=== PATIENT | female | born 1965 | race Caucasian/White ===

== ENCOUNTER 2016-09-02 12:09 | Emergency (ER) | payer MEDICARE, OTHER ==
[~2016-09-02] VITALS: Wt 89.0 kg
[~2016-09-02 12:09] MED LIST: ATEN50TA PO; CEPH-443 PO; INSU100C5 SQ; NOVOLOG; OMEP40CA6 PO; SEVE800T7 PO; TAP5 PO
[2016-09-02] MEDS ORDERED: ACETAMINOPHEN 325 MG TAB PO ONE (13:00)
--- NOTE | 2016-09-02 14:20 | RADRPT ---
PROCEDURE: XR Chest AP portable CLINICAL INDICATION: Cough TECHNIQUE: An AP portable radiograph of the chest was submitted. COMPARISON: 02/12/2013 FINDINGS: Support Hardware: None Cardiovascular: The heart size has slightly increased and is now borderline enlarged while the perip heral pulmonary vasculature is upper normal. Lung Wyatt: The lung wyatt appear clear with no nodule, alveolar infiltrate, or interstitial promi nence evident. Pleural Spaces: No pneumothorax or pleural effusion is identified. Osseous Structures: The osseous structures appear intact. Soft Tissues: The soft tissues appear generous. IMPRESSION: 1. The heart size is increased and is now borderline enlarged while the pulmonary vasculature is up per normal. 2. The lung wyatt and pleural spaces remain unremarkable. Physician Nalini Date Time Electronically viewed and signed by Physician Nalini on 09/02/2016 14:19 /
[2016-09-02] MEDS ORDERED: ACET500C5 PO (14:23)
[2016-09-02] MEDS ORDERED: AZIT250T94 PO (14:23)
[2016-09-02] MEDS ORDERED: OSLT75C PO (14:23)
[2016-09-02] MEDS ORDERED: D-ME473S18 PO (14:24)
--- NOTE | 2016-09-02 14:26 | ERD ---
ER Documentation Chief Complaint Date/Time DATE: 09/02/16 TIME: 14:25 Chief Complaint COUGH, HEADACHE, GENERAL BODY ACHE X 3 DAYS HPI This 50-year-old female presents with productive cough and sore throat body aches and tactile fevers last 3 days. She is a dialysis patient. She has diabetes. She denies vomiting, abdominal pain, headache, neck stiffness, rashes. ROS All systems reviewed and are negative except as per history of present illness. Medications Home Meds Active Scripts Dextromethorphan Hb-Promethazine Hcl (Promethazine DM Syrup) 473 Ml Syrup, 5 ML PO Q6H Y for COUGH, #4 OZ Prov:NORAH HOWE MD 09/02/16 Acetaminophen* (Tylophen*) 500 Mg Capsule, 1 CAP PO Q6H Y for PAIN AND OR ELEVATED TEMP, #15 CAP Prov:NORAH HOWE MD 09/02/16 Azithromycin* (Zithromax*) 250 Mg Tablet, 250 MG PO .ZPACK DIRECTED, #6 TAB TAKE 500 MG (2 TABS) THE FIRST DAY THEN 250 MG (1 TAB) DAYS 2-5 Prov:NORAH HOWE MD 09/02/16 Oseltamivir Phosphate* (Tamiflu*) 75 Mg Capsule, 75 MG PO BID for 5 Days, CAP Prov:NORAH HOWE MD 09/02/16 Cephalexin* (Keflex*) 500 Mg Capsule, 1000 MG PO BID for 7 Days, CAP Prov:ALESIA SOLANO 03/26/16 Reported Medications [Novolog] No Conflict Check 02/12/13 Sevelamer Carbonate* (Renvela*) 800 Mg Tablet, 800 MG PO TID 01/16/13 Methimazole* (Methimazole*) 5 Mg Tablet, 10 MG PO BID 01/16/13 Omeprazole* (Omeprazole*) 40 Mg Capsule.dr, 10 MG PO Y 01/16/13 Insulin Glargine,Hum.rec.anlog (Lantus) 100 U/Ml Cartridge, 30 SQ HS 01/16/13 Atenolol* (Atenolol*) 50 Mg Tablet, 50 MG PO DAILY 12/17/11 Allergies Allergies: Coded Allergies: No Known Allergies (Verified Allergy, Unknown, 08/18/14) PMhx/Soc History of Surgery: Yes (port A catheter placement,2011 and AV fistula 2011) Anesthesia Reaction: No Hx Neurological Disorder: No Hx Respiratory Disorders: No Hx Cardiac Disorders: Yes (htn) Hx Psychiatric Problems: No Hx Miscellaneous Medical Probl: Yes (DM, ESRD, dialysis Tue, Thur, Sat, thyroid problem) Hx Alcohol Use: No Hx Substance Use: No Hx Tobacco Use: No Smoking Status: Never smoker Physical Exam Vitals Vital Signs Date Time Temp Pulse Resp B/P Pulse Ox O2 Delivery O2 Flow Rate FiO2 09/02/16 12:28 98.9 86 18 166/80 99 Physical Exam Const: [] Alert, morbidly obese per Head: Atraumatic Eyes: Normal Conjunctiva ENT: Normal External Ears, Nose and Mouth. TMs and oropharynx normal. Neck: Full range of motion..~ No meningismus. Resp: Clear to auscultation bilaterally. Coarse breath sounds without wheezing, rales or retractions. Cardio: Regular rate and rhythm, no murmurs Abd: Soft, non tender, non distended. Normal bowel sounds Skin: No petechiae or rashes Back: No midline or flank tenderness Ext: No cyanosis, or edema Neur: Awake and alert Psych: Normal Mood and Affect Results 24 hrs Current Medications Medications (Trade) Dose Ordered Sig/Yasmeen Route PRN Reason Start Time Stop Time Status Last Admin Dose Admin Acetaminophen (Tylenol Tab) 650 mg ONCE ONCE PO 09/02/16 13:00 09/02/16 13:01 DC 09/02/16 13:59 Procedures/MDM Chest X-ray 1V Interpreted by me: Soft Tissue: No acute abnormalities Bones: No acute abnormalities Mediastinum/Cardiac Silhouette/Lungs: [No acute abnormalities]. Impression- no acute findings in 1 view chest x-ray Patient was given Tylenol for body aches and fever. Patient has acute URI symptoms suggestive of possible influenza without evidence of respiratory distress or hypoxemia. Given patient's high risk status she will be treated with Tamiflu as well as Zithromax for productive cough. Patient additionally be given promethazine and Tylenol instructions to follow-up with primary doctor return to ER for new or worsening symptoms. The patient was stable with no new complaints during the ER course. Clinically, there is no current evidence to suggest meningitis, sepsis, acute abdomen, pneumonia, acute coronary syndrome, pulmonary embolism, or any other emergent condition appearing to require further evaluation or hospitalization. The patient should certainly return for any new or worsening symptoms per the aftercare instructions. They should otherwise follow-up with her primary care doctor for reevaluation this week. Departure Diagnosis: Primary Impression: Upper respiratory infection URI type: unspecified URI Qualified Code: J06.9 - Upper respiratory tract infection, unspecified type Additional Impression: Influenza-like symptoms Condition: Stable Patient Instructions: Acute Bronchitis, Influenza (Adult) Additional Instructions: X-ray normal. Cheque otro vez con bearden doctor primario en el proximo guevara or regresa para mas o nueva simptomas. NORHA HOWE MD Sep 02, 2016 14:26
[2016-09-02 15:07] VITALS: BP 177/78; PULSE 61; RESP 18; TEMP 99
== END 2016-09-02 15:08 | disposition home or self-care (01) ==
LOC: FTE 12:09
DX: J06.9 Acute upper respiratory infection, unspecified (principal); J02.9 Acute pharyngitis, unspecified; R50.9 Fever, unspecified; E11.9 Type 2 diabetes mellitus without complications; I12.0 Hypertensive chronic kidney disease with stage 5 chronic kidney disease or end stage renal disease; N18.6 End stage renal disease; Z79.4 Long term (current) use of insulin; Z99.2 Dependence on renal dialysis
CPT/HCPCS: 71010

== ENCOUNTER 2016-10-09 09:10 | Observation (INO) | payer MEDICARE ==
[~2016-10-09] VITALS: Ht 162.6 cm; Wt 91.0 kg
[~2016-10-09 09:10] MED LIST changes: +ACET500C5 PO; +AZIT250T94 PO; +D-ME473S18 PO; +METH-493 PO; +OSLT75C PO; -TAP5 PO
[2016-10-09 09:59] LABS: ADD SCAN DIFF NO
[2016-10-09 10:08] LABS: BASOPHILS % 0.2 % (0.0-2.0); EOSINOPHILS # 0.1 10^3/ul (0.0-0.5); EOSINOPHILS % 1.5 % (0.0-7.0); HEMATOCRIT 31.9 % (37.0-47.0); HEMOGLOBIN 10.9 g/dl (12.0-16.0); LYMPHOCYTES # 2.8 10^3/ul (0.8-2.9); LYMPHOCYTES % 47.3 % (15.0-51.0); MEAN CORPUSCULAR HEMOGLOBIN 35.2 pg (29.0-33.0); MEAN CORPUSCULAR HGB CONC 34.2 g/dl (32.0-37.0); MEAN CORPUSCULAR VOLUME 102.9 fl (82.0-101.0); MEAN PLATELET VOLUME 11.7 fl (7.4-10.4); MONOCYTE # 0.5 10^3/ul (0.3-0.9); MONOCYTES % 7.7 % (0.0-11.0); NEUTROPHIL # 2.6 10^3/ul (1.6-7.5); NEUTROPHILS % 43.1 % (39.0-77.0); PLATELET COUNT 147 10^3/UL (140-415); RED CELL DISTRIBUTION WIDTH 12.8 % (11.5-14.5)
[2016-10-09 10:11] LABS: ALBUMIN 4.2 g/dl (3.3-4.9)
[2016-10-09 10:12] LABS: INR 0.97; POTASSIUM 4.6 mmol/L (3.5-5.1); PROTIME 12.9 Sec (12.2-14.2)
[2016-10-09 10:13] LABS: PARTIAL THROMBOPLASTIN TIME 33.5 Sec (25.0-35.0)
[2016-10-09 10:14] LABS: ALBUMIN/GLOBULIN RATIO 1.02; BILIRUBIN,INDIRECT 0.2 mg/dl (0-1.1); BILIRUBIN,TOTAL 0.2 mg/dl (0.2-1.3); CREATININE 7.49 mg/dl (0.44-1.00); TOTAL PROTEIN 8.3 g/dl (6.1-8.1)
[2016-10-09 10:15] LABS: CALCIUM 9.1 mg/dl (8.4-10.2)
[2016-10-09] MEDS ORDERED: LANT3I SC (10:28)
[2016-10-09] MEDS ORDERED: ASPI81TA3 PO (10:34)
[2016-10-09] MEDS ORDERED: NOVO3I SC (10:34)
[2016-10-09] MEDS ORDERED: LEVO150T67 PO (10:35)
[2016-10-09] MEDS ORDERED: CHOL100062 PO (10:35)
--- NOTE | 2016-10-09 10:40 | ERA ---
ER Documentation Chief Complaint Date/Time DATE: 10/09/16 TIME: 918 Chief Complaint send by dialysis center , av fistula ocludded HPI 51-year-old female referred to the emergency department from her dialysis center for evaluation of a AV fistula that was not working. Patient's last dialysis was approximately 2 days ago. She states that since then, the AV fistula in her left upper extremity has gotten larger. She went to dialysis today and they were not able to use the fistula. She reports no other symptoms at this time. ROS All systems reviewed and are negative except as per history of present illness. Medications Home Meds Reported Medications Cholecalciferol* (Vitamin D3*) 1,000 Unit Tablet, 1000 UNIT PO DAILY, TAB 10/09/16 Levothyroxine Sodium* (Levothyroxine Sodium*) 150 Mcg Tablet, 150 MCG PO BEFORE BREAKFAST, #30 TAB 10/09/16 Aspirin* (Aspirin* Chew) 81 Mg Tab.chew, 81 MG PO DAILY, TAB.CHEW 10/09/16 Insulin Aspart* (Novolog Insulin Pen*) 100 Unit/Ml Soln, 12 UNIT SC WITH MEALS, EA 10/09/16 Insulin Glargine* (Lantus*) 100 Unit/Ml Soln, 35 UNIT SC QHS, #1 VIAL 10/09/16 Sevelamer Carbonate* (Renvela*) 800 Mg Tablet, 800 MG PO TID 01/16/13 Atenolol* (Atenolol*) 50 Mg Tablet, 50 MG PO DAILY 12/17/11 Discontinued Reported Medications [Novolog] No Conflict Check 02/12/13 Methimazole* (Methimazole*) 5 Mg Tablet, 10 MG PO BID 01/16/13 Omeprazole* (Omeprazole*) 40 Mg Capsule.dr, 10 MG PO Y 01/16/13 Insulin Glargine,Hum.rec.anlog (Lantus) 100 U/Ml Cartridge, 30 SQ HS 01/16/13 Discontinued Scripts Dextromethorphan Hb-Promethazine Hcl (Promethazine DM Syrup) 473 Ml Syrup, 5 ML PO Q6H Y for COUGH, #4 OZ Prov:NORAH HOWE MD 09/02/16 Acetaminophen* (Tylophen*) 500 Mg Capsule, 1 CAP PO Q6H Y for PAIN AND OR ELEVATED TEMP, #15 CAP Prov:NORAH HOWE MD 09/02/16 Azithromycin* (Zithromax*) 250 Mg Tablet, 250 MG PO .EstherPACK DIRECTED, #6 TAB TAKE 500 MG (2 TABS) THE FIRST DAY THEN 250 MG (1 TAB) DAYS 2-5 Prov:NORAH HOWE MD 09/02/16 Oseltamivir Phosphate* (Tamiflu*) 75 Mg Capsule, 75 MG PO BID for 5 Days, CAP Prov:NORAH HOWE MD 09/02/16 Cephalexin* (Keflex*) 500 Mg Capsule, 1000 MG PO BID for 7 Days, CAP Prov:ALESIA SOLANO 03/26/16 Allergies Allergies: Coded Allergies: No Known Allergies (Verified Allergy, Unknown, 08/18/14) PMhx/Soc History of Surgery: Yes (port A catheter placement,2011 and AV fistula 2011) Anesthesia Reaction: No Hx Neurological Disorder: No Hx Respiratory Disorders: No Hx Cardiac Disorders: Yes (htn) Hx Psychiatric Problems: No Hx Miscellaneous Medical Probl: Yes (DM, ESRD, dialysis Tue, Thur, Sat, thyroid problem) Hx Alcohol Use: No Hx Substance Use: No Hx Tobacco Use: No Smoking Status: Never smoker FmHx Noncontributory for chief complaint Physical Exam Vitals Vital Signs Date Time Temp Pulse Resp B/P Pulse Ox O2 Delivery O2 Flow Rate FiO2 10/09/16 09:12 97.8 64 20 192/87 99 Physical Exam GENERAL: The patient is well developed and appropriate for usual state of health in no apparent distress HEENT: Pupils equal, round, and reactive to light. EOMI. There is no scleral icterus. NECK: C-spine is soft and supple, there is no meningismus. There is no cervical lymphadenopathy. LUNGS: Clear to auscultation bilaterally. There are no rales, wheezes or rhonchi. HEART: Regular rate and rhythm, no murmurs, clicks, rubs or gallops. ABDOMEN: Soft, non-tender, non-distended. There are bowel sounds in all four quadrants. No rebound or guarding. EXTREMITIES: There is no peripheral cyanosis or edema. No focal swelling or erythema. Left upper extremity dialysis graft is noted to be aneurysmal with no significant bruit or thrill in the distal aspect of the fistula. NEURO: The patient moves all four extremities with 5/5 strength. Cranial nerves II - XII are intact. Normal gait. Alert and oriented SKIN: There is no apparent rash or petechiae. HEME/LYMPHATIC: There is no evidence of excessive bruising or lymphedema. PSYCHIATRIC: The patient does not appear anxious or depressed. Result Diagram: 10/09/16 0950 10/09/16 0950 Results 24 hrs Laboratory Tests Test 10/09/16 09:50 White Blood Count 6.010^3/ul Red Blood Count 3.1010^6/ul Hemoglobin 10.9g/dl Hematocrit 31.9% Mean Corpuscular Volume 102.9fl Mean Corpuscular Hemoglobin 35.2pg Mean Corpuscular Hemoglobin Concent 34.2g/dl Red Cell Distribution Width 12.8% Platelet Count 98340^3/UL Mean Platelet Volume 11.7fl Neutrophils % 43.1% Lymphocytes % 47.3% Monocytes % 7.7% Eosinophils % 1.5% Basophils % 0.2% Nucleated Red Blood Cells % 0.0/100WBC Neutrophils # 2.610^3/ul Lymphocytes # 2.810^3/ul Monocytes # 0.510^3/ul Eosinophils # 0.110^3/ul Basophils # 0.010^3/ul Nucleated Red Blood Cells # 0.010^3/ul Prothrombin Time 12.9Sec Prothrombin Time Ratio 1.0 INR International Normalized Ratio 0.97 Activated Partial Thromboplast Time 33.5Sec Sodium Level 140mmol/L Potassium Level 4.6mmol/L Chloride Level 100mmol/L Carbon Dioxide Level 22mmol/L Anion Gap 23 Blood Urea Nitrogen 71mg/dl Creatinine 7.49mg/dl Glucose Level 146mg/dl Calcium Level 9.1mg/dl Total Bilirubin 0.2mg/dl Direct Bilirubin 0.00mg/dl Indirect Bilirubin 0.2mg/dl Aspartate Amino Transf (AST/SGOT) 70IU/L Alanine Aminotransferase (ALT/SGPT) 76IU/L Alkaline Phosphatase 130IU/L Total Protein 8.3g/dl Albumin 4.2g/dl Globulin 4.10g/dl Albumin/Globulin Ratio 1.02 Lipase 582U/L Procedures/MDM Patient was taken to a room, seen and evaluated. Comfort measures were initiated. Diagnostic tests were ordered and reviewed. 3 LEAD RHYTHM STRIP: Normal sinus rhythm without ectopy EK lead EKG reviewed by myself: Normal Sinus Rhythm Normal Higgins and intervals No ST elevation, depression, or T wave inversion Impression: Normal EKG RADIOLOGY: reviewed with the radiologist CONSULTATION: hospitalist was notified for admission after speaking with the patient's mat puncher, Dr. Saldivar. I also spoke with Dr. Suarez vascular surgery consultation REEVALUATION: 51-year-old female presents the emergency department with what appears to be a nonfunctional and likely aneurysmal AV dialysis graft. At this time, patient shows no evidence of significant infection, but will require dialysis initiation and management of catheter access. MEDICAL DECISION MAKING: default value Departure Diagnosis: Primary Impression: Complication of vascular access for dialysis Condition: CHANG Chapa Oct 09, 2016 10:40
[2016-10-09] MEDS ORDERED: ACETAMINOPHEN 325 MG TAB PO PRN (11:00)
[2016-10-09] MEDS ORDERED: HYDROCODONE/APAP (5/325) TAB PO PRN (11:00)
[2016-10-09] MEDS ORDERED: NACL 0.9% 3 ML SYG IV SCH (11:00)
[2016-10-09] MEDS ORDERED: ACETAMINOPHEN 650 MG SUPP PR PRN (11:00)
[2016-10-09] MEDS ORDERED: HEPARIN 1000 UNITS/ML 10 ML INJ IV ONE (11:00)
[2016-10-09] MEDS ORDERED: HEPARIN 1000 UNITS/ML 10 ML INJ IV PRN ×2 (11:00)
[2016-10-09] MEDS ORDERED: DOCUSATE SODIUM 100 MG CAP PO PRN (11:00)
[2016-10-09] MEDS ORDERED: ONDANSETRON 4 MG TAB PO PRN (11:00)
[2016-10-09] MEDS: INSULIN ASPART [NOVOLOG] 3 ML PEN SC SCH ×4 (11:36→21:00)
[2016-10-09] MEDS: ATENOLOL 50 MG TAB PO SCH (13:22)
[2016-10-09 13:32] VITALS: Ht 162.6 cm; Wt 91.0 kg
[2016-10-09] MEDS: SEVELAMER CARBONATE 0.8 GM PKT PO SCH ×2 (14:52→19:08)
[2016-10-09] MEDS: HEPARIN 25000 UNITS/250 ML 250 ML IV SCH ×2 (15:09→21:30)
[2016-10-09] MEDS ORDERED: DEXTROSE 5%-0.45% NACL 1,000 ML IV SCH (17:00)
[2016-10-09] MEDS ORDERED: GLUCOSE GEL 15 GRAM TUBE BUCCAL PRN (17:00)
[2016-10-09] MEDS ORDERED: DEXTROSE 50% 50 ML SYRINGE IV PRN ×2 (17:00)
[2016-10-09] MEDS ORDERED: GLUCOSE GEL 15 GRAM TUBE PO PRN ×2 (17:00)
[2016-10-09] MEDS ORDERED: GLUCAGON 1 MG INJ IM PRN (17:00)
[2016-10-09 20:03] VITALS: BP 181/78; RESP 18
--- NOTE | 2016-10-09 20:51 | CONS ---
DATE OF ADMISSION: 10/09/2016 DATE OF CONSULTATION: REASON FOR CONSULTATION: Clotted left upper extremity arteriovenous fistula. Thank you, Drs. Lind and Milton, for asking me to see this patient. HISTORY OF PRESENT ILLNESS: This is a 51-year-old female currently on dialysis per left upper extre mity AV fistula. The patient reported to dialysis unit, was found to have a clotted fistula which w as not functioning. PAST MEDICAL HISTORY: Hypertension, hyperlipidemia, obesity, end-stage renal disease. PAST SURGICAL HISTORY: Dialysis access. ALLERGIES: NONE. SOCIAL HISTORY: No smoking, drinking or drug use. FAMILY HISTORY: No history of sudden cardiac . REVIEW OF SYSTEMS: Negative. PHYSICAL EXAMINATION: GENERAL: The patient is awake, alert, responds appropriately. VITAL SIGNS: Blood pressure is 181/78, pulse is 57, respirations 18, saturation is 97% on room air. HEENT: Normocephalic, atraumatic. PERRLA. NECK: Supple. No JVD, no carotid bruits. CARDIOVASCULAR: Normal S1, S2. LUNGS: Clear. ABDOMEN: Soft. EXTREMITIES: Warm. Left upper extremity AV fistula has inspected. It's aneurysmal with no thrill or bruit. LABORATORY VALUES: Hemoglobin 10.1, white count 6, platelet count 147. Normal coagulation factors and a potassium of 4.6. IMPRESSION: End-stage renal disease with a clotted left upper extremity arteriovenous fistula. RECOMMENDATIONS: Will proceed with thrombectomy, left upper extremity AV fistula. Risks, benefits, complications, alternative therapies explained to the patient. All questions answered. Dictated By: LISBETH TIDWELL/RASHAAD Conf#: [id number] DID#: [id number]
[2016-10-09 21:00] VITALS: BP 176/80; PULSE 60
[2016-10-09] MEDS ORDERED: INSULIN GLARGINE [LANtus] 3 ML PEN SC SCH (21:00)
[2016-10-09] MEDS ORDERED: hydrALAzine 20 MG INJ IV PRN ×2 (21:30→23:00)
[2016-10-09 22:00] VITALS: BP 144/65; PULSE 77
[2016-10-10] VITALS (17 sets, daily range): BP systolic 110–168; BP diastolic 59–83; PULSE 62–72; RESP 12–19
[2016-10-10] MEDS: INSULIN ASPART [NOVOLOG] 3 ML PEN SC SCH ×9 (01:00→22:12)
--- NOTE | 2016-10-10 04:16 | HP ---
DATE OF ADMISSION: 10/09/2016 CONSULTANTS: 1. Dr. Geovani Harmon 2. Dr. Saldivar CHIEF COMPLAINT: Left upper extremity fistula dysfunction. HISTORY OF PRESENT ILLNESS: This is a pleasant 51-year-old female with past medical history of diab etes mellitus, hypertension, hypothyroidism, end-stage renal disease on hemodialysis, and diabetic n ephropathy who was scheduled for hemodialysis this morning, and it was found that her AV fistula is not functioning. Therefore, she was transferred to [facility] Emergency Room. Vascular bearden jaron has been consulted from ER. The patient was made n.p.o. and was started on gentle IV fluid, h eparin. Also, nephrology was consulted. The patient denies having any fever, chills, weight gain, weight loss, or anorexia. No chest pain, palpitations, edema, or orthopnea. No change in visual ac uity, diplopia, photophobia. No abdominal pain. No nausea, vomiting, diarrhea. No dysuria, hematu liset, urgency, incontinence. No change in the color of stool. No neck pain. No restricted range of motion in upper and lower extremities. According to the patient, this has happened to her left upp er extremity AV fistula in the past when she had to obtain thrombectomy in her AV fistula about 2 ye ars ago. PAST MEDICAL AND SURGICAL HISTORY: As above per HPI. MEDICATIONS: 1. Aspirin. 2. Atenolol. 3. Vitamin D. 4. Lantus. 5. NovoLog before meals. 6. Levothyroxine. 7. Renvela. ALLERGIES: NO KNOWN DRUG ALLERGIES. FAMILY HISTORY: Noncontributory. SOCIAL HISTORY: Negative x3 for smoking, alcohol, illicit drugs. She lives at home with her husban d and her daughter. REVIEW OF SYSTEMS: As above per HPI. Otherwise, a 12 point review of systems has been found to be negative. PHYSICAL EXAMINATION: VITAL SIGNS: Temperature 97.5, pulse 60, respirations 18, blood pressure 176/80, oxygen saturation 97% on room air. GENERAL APPEARANCE: The patient is lying in bed comfortably without any distress. She is awake, al ert, oriented. She is able to answer my questions properly. Body habitus mildly overweight with BM I 34.4. EYES AND ENT: Conjunctivae and lids are normal. Pupils are normal. Extraocular normal. Hearing g rossly normal. Lips, teeth, and gums normal. CHEST: Normal expansion of thorax during inspiration. GASTROINTESTINAL: Abdomen is soft, nontender, not distended. Bowel sounds present. No guarding, n o rebound. GENITOURINARY: Deferred. MUSCULOSKELETAL: Upper extremity: There is swelling at the site of AV fistula in antecubital fossa in her biceps area that is nontender to touch. Right upper extremity within normal limits. Bilate ral lower extremities within normal limits. ABDOMEN: Soft, nontender, not distended. Bowel sounds present. No guarding, no rebound. GENITOURINARY: Deferred. MUSCULOSKELETAL: As above. NEUROLOGIC: Cranial nerves II through XII are grossly intact. PSYCHIATRIC: Normal judgment and insight. Alert and oriented x3. Mood and affect is normal. LABORATORY WORK AND IMAGING: WBC 6.0, hemoglobin 10.9, hematocrit 31.9, platelets 147. MCV 102.9. Sodium 140, potassium 4.6, chloride 100, bicarbonate 22, BUN 71, creatinine 7.49, glucose 146, calc ium 9.1, AST 70, ALT of 76, alkaline phosphatase 130. Total protein 8.3, lipase 582. ASSESSMENT AND PLAN 1. Arteriovenous fistula dysfunction. Vascular surgeon has been consulted. Follow his recommendat ion. The patient has been placed on heparin drip. 2. End-stage renal disease on hemodialysis. Nephrology has been consulted. We will follow his rec ommendation for hemodialysis, status post AV fistula embolectomy. 3. Essential hypertension, well controlled on medical management. 4. Diabetes mellitus. Follow up patient's hemoglobin A1c. The patient has been placed on insulin sliding scale. At this time, the patient is n.p.o. 6. Transaminitis which could be hepatorenal. We will obtain abdominal ultrasound. If indicated, w e will obtain a GI consultation. 7. Hypothyroidism. Continue levothyroxine. 8. We will continue to monitor patient closely. Further recommendations, management, and treatment as per clinical course. Dictated By: SHARIFA BARRIENTOS/RASHAAD Conf#: [id number] DID#: [id number]
[2016-10-10 05:03] LABS: ADD SCAN DIFF NO
[2016-10-10 05:06] LABS: BASOPHILS % 0.2 % (0.0-2.0); EOSINOPHILS # 0.2 10^3/ul (0.0-0.5); EOSINOPHILS % 2.5 % (0.0-7.0); HEMATOCRIT 30.6 % (37.0-47.0); HEMOGLOBIN 10.3 g/dl (12.0-16.0); LYMPHOCYTES # 3.5 10^3/ul (0.8-2.9); LYMPHOCYTES % 59.4 % (15.0-51.0); MEAN CORPUSCULAR HEMOGLOBIN 34.4 pg (29.0-33.0); MEAN CORPUSCULAR HGB CONC 33.7 g/dl (32.0-37.0); MEAN CORPUSCULAR VOLUME 102.3 fl (82.0-101.0); MEAN PLATELET VOLUME 11.3 fl (7.4-10.4); MONOCYTE # 0.4 10^3/ul (0.3-0.9); MONOCYTES % 6.3 % (0.0-11.0); NEUTROPHIL # 1.9 10^3/ul (1.6-7.5); NEUTROPHILS % 31.6 % (39.0-77.0); PLATELET COUNT 133 10^3/UL (140-415); RED BLOOD COUNT 2.99 10^6/ul (4.20-5.40); RED CELL DISTRIBUTION WIDTH 12.8 % (11.5-14.5); WHITE BLOOD COUNT 5.9 10^3/ul (4.8-10.8)
[2016-10-10 05:11] LABS: CREATININE 7.91 mg/dl (0.44-1.00)
[2016-10-10 05:12] LABS: CALCIUM 8.5 mg/dl (8.4-10.2)
[2016-10-10 05:45] LABS: ALBUMIN 3.3 g/dl (3.3-4.9)
[2016-10-10 05:48] LABS: BILIRUBIN,INDIRECT 0.1 mg/dl (0-1.1); BILIRUBIN,TOTAL 0.1 mg/dl (0.2-1.3); TOTAL PROTEIN 6.7 g/dl (6.1-8.1)
[2016-10-10] MEDS: LEVOTHYROXINE 150 MCG TAB PO SCH (07:00)
[2016-10-10] MEDS: SEVELAMER CARBONATE 0.8 GM PKT PO SCH ×3 (07:35→17:30)
[2016-10-10] MEDS: CHOLECALCIFEROL 1,000 UNIT TAB PO SCH (09:00)
[2016-10-10] MEDS: ASPIRIN 81 MG TAB PO SCH (09:00)
[2016-10-10] MEDS: ATENOLOL 50 MG TAB PO SCH (09:00)
--- NOTE | 2016-10-10 09:19 | RADRPT ---
PROCEDURE: US Abdomen (right upper quadrant). CLINICAL INDICATION: Abnormal liver function tests. Chronic renal failure. Patient on dialysis. TECHNIQUE: Multiple real-time longitudinal and transverse images of the right upper quadrant of th e abdomen were acquired utilizing a curved array transducer. Images were reviewed on a high-resoluti on PACS workstation. COMPARISON: Renal ultrasound dated 01/19/2013. FINDINGS: The liver is normal in size and echogenicity. There is no focal hepatic lesion. Color Doppler sonography demonstrates normal antegrade flow in the portal vein. The gallbladder is normal with no stones or wall thickening. There is no pericholecystic fluid ricco ection. The bile ducts are normal with the common bile duct measuring 4.6 mm in diameter. The visualized portions of the pancreas are unremarkable with obscuration of the tail of the pancrea s. No free fluid is present. The right kidney measures 6.2 cm. There is normal echogenicity of the right kidney. There is no p erinephric fluid collection. No hydronephrosis, mass, or calculus is seen. IMPRESSION: 1. Atrophic right kidney. 2. Otherwise normal right upper quadrant abdomen ultrasound. RPTAT: QQ .Soto Lucero MD, Date Time Electronically viewed and signed by .Soto Lucero MD, on 10/10/2016 09:19 .R/
[2016-10-10] MEDS: HEPARIN 25000 UNITS/250 ML 250 ML IV SCH ×2 (09:50→17:06)
[2016-10-10] MEDS ORDERED: HEPARIN 1000 UNITS/ML 10 ML INJ ONE (11:51)
[2016-10-10] MEDS ORDERED: LIDOCAINE 1% (MPF) 30 ML INJ ONE (11:51)
[2016-10-10] MEDS ORDERED: PROPOFOL 20 ML ONE (11:53)
[2016-10-10] MEDS ORDERED: FENTAnyl 50 MCG/ML VIAL ONE (11:53)
[2016-10-10] MEDS ORDERED: METOCLOPRAMIDE 10 MG INJ ONE (11:53)
[2016-10-10] MEDS ORDERED: SUCCINYLCHOLINE CHLORIDE 100 MG/5 ML SYG IV ONE (11:53)
[2016-10-10] MEDS ORDERED: ONDANSETRON 4 MG INJ ONE (11:53)
[2016-10-10] MEDS ORDERED: ROCURONIUM 50 MG INJ ONE (11:53)
[2016-10-10] MEDS ORDERED: CEFAZOLIN 1 GM INJ ONE (12:09)
[2016-10-10] MEDS ORDERED: IOHEXOL 300MG/ML 30 ML BTL IV ONE (12:30)
[2016-10-10] MEDS ORDERED: HEPARIN 1000 UNITS/ML 10 ML INJ IRR ONE (12:30)
[2016-10-10] MEDS ORDERED: ONDANSETRON 4 MG INJ IV PRN (13:00)
[2016-10-10] MEDS ORDERED: hydrALAzine 20 MG INJ IV PRN (13:00)
[2016-10-10] MEDS ORDERED: MEPERIDINE 25 MG INJ IV PRN (13:00)
[2016-10-10] MEDS ORDERED: LABETALOL HCL 20MG INJ IV PRN (13:00)
[2016-10-10] MEDS ORDERED: HYDROmorphONE (0.2 MG/ML) 10ML SYG IV PRN ×3 (13:00)
[2016-10-10] MEDS ORDERED: FENTAnyl 50 MCG/ML VIAL IV PRN ×2 (13:00)
[2016-10-10] MEDS ORDERED: IOHEXOL 300MG/ML 30 ML BTL ONE (13:38)
--- NOTE | 2016-10-10 14:13 | PN ---
Date/Time of Note Date/Time of Note DATE: 10/10/16 TIME: 14:05 Assessment/Plan VTE Prophylaxis VTE Prophylaxis Intervention: heparin Lines/Catheters IV [facility] (from [facility]): Peripheral IV Assessment/Plan Chief Complaint/Hosp Course ASSESSMENT AND PLAN 1. Arteriovenous fistula dysfunction. Vascular surgeon has been consulted. Scheduled for AV fistula embolectomy today, continue heparin drip, follow his recommendation. Continue postsurgical care 2. End-stage renal disease on hemodialysis. Nephrology has been consulted. We will follow his recommendation for hemodialysis, status post AV fistula embolectomy. 3. Essential hypertension, well controlled on medical management. 4. Diabetes mellitus. With hemoglobin A1c of 7.0, the patient has been placed on insulin sliding scale. At this time, the patient is n.p.o. 6. Transaminitis which could be hepatorenal. Follow up abdominal ultrasound. If indicated, we will obtain a GI consultation. 7. Hypothyroidism. Continue levothyroxine. We will continue to monitor patient closely. Further recommendations, management, and treatment as per clinical course. Plan to discharge home tomorrow after hemodialysis Problems: Subjective 24 Hr Interval Summary Free Text/Dictation Plan for surgical intervention today Denies any chest pain or shortness of breath N.p.o. secondary to upcoming procedure Exam/Review of Systems Vital Signs Vitals Vital Signs Date Time Temp Pulse Resp B/P Pulse Ox O2 Delivery O2 Flow Rate FiO2 10/10/16 10:35 150/70 10/10/16 07:56 98.3 67 18 94 Intake and Output 10/09/16 10/09/16 10/10/16 14:59 22:59 06:59 Intake Total 33 ml 1255 ml Balance 33 ml 1255 ml Exam General: The patient is moderately overweight, Not in acute distress. HEENT: Atraumatic, normocephalic. The pupils are equal and round . Neck: Supple with full range of motion. Chest: Normal expansion of the thorax during inspiration Lungs: Clear to auscultation bilaterally Heart: Normal S1-S2, Regular rhythm and rate. Abdomen: Soft , nontender, nondistended , bowel sounds are present. Extremities: Left upper extremity fistula site swollen, no edema no cyanosis Neurologic: Normal mental status,The patient is awake, alert and oriented . Results Result Diagram: 10/10/16 0441 10/10/16 0444 Results 24 hrs Laboratory Tests Test 10/09/16 16:38 10/09/16 17:30 10/09/16 20:05 10/09/16 20:23 Bedside Glucose 63 L 129 65 L Activated Partial Thromboplast Time 121.0 *H Test 10/09/16 20:53 10/09/16 21:34 10/09/16 22:03 10/10/16 00:31 Bedside Glucose 76 101 145 190 Test 10/10/16 04:33 10/10/16 04:41 10/10/16 04:44 10/10/16 04:52 Activated Partial Thromboplast Time 49.9 H Hemoglobin A1c 7.0 H Total Bilirubin 0.1 L Direct Bilirubin 0.00 Indirect Bilirubin 0.1 Aspartate Amino Transf (AST/SGOT) 55 H Alanine Aminotransferase (ALT/SGPT) 74 H Alkaline Phosphatase 97 Total Protein 6.7 # Albumin 3.3 Lipase 402 H White Blood Count 5.9 Red Blood Count 2.99 L Hemoglobin 10.3 L Hematocrit 30.6 L Mean Corpuscular Volume 102.3 H Mean Corpuscular Hemoglobin 34.4 H Mean Corpuscular Hemoglobin Concent 33.7 Red Cell Distribution Width 12.8 Platelet Count 133 L Mean Platelet Volume 11.3 H Neutrophils % 31.6 L Lymphocytes % 59.4 H Monocytes % 6.3 Eosinophils % 2.5 Basophils % 0.2 Nucleated Red Blood Cells % 0.0 Neutrophils # 1.9 Lymphocytes # 3.5 H Monocytes # 0.4 Eosinophils # 0.2 Basophils # 0.0 Nucleated Red Blood Cells # 0.0 Sodium Level 139 Potassium Level 4.0 Chloride Level 102 Carbon Dioxide Level 23 Anion Gap 18 H Blood Urea Nitrogen 79 H Creatinine 7.91 H Glucose Level 142 Calcium Level 8.5 Magnesium Level 2.0 Bedside Glucose 125 Test 10/10/16 08:02 Bedside Glucose 142 Medications Medications Current Medications Ondansetron HCl (Zofran Tab) 4 mg Q6H PRN PO NAUSEA AND/OR VOMITING; Start at 11:00 Acetaminophen (Tylenol Tab) 650 mg Q6H PRN PO PAIN LEVEL 1-3 OR FEVER; Start at 11:00 Acetaminophen (Tylenol Supp) 650 mg Q6H PRN [place] PAIN LEVEL 1-3 OR FEVER; Start 10/09/16 at 11:00 Acetaminophen/ Hydrocodone Bitart ([place] (5/325)) 1 tab Q6H PRN PO MODERATE PAIN LEVEL 4-6; Start 10/09/16 at 11:00 Docusate Sodium (Colace) 100 mg Q12H PRN PO CONSTIPATION; Start 10/09/16 at 11: 00 Aspirin (Aspirin) 81 mg DAILY PO ; Start 10/10/16 at 09:00 Atenolol (Tenormin) 50 mg DAILY PO Last administered on 10/09/16 13:22; Admin Dose 50 MG; Start 10/09/16 at 11:00 Cholecalciferol (Vitamin D) 1,000 unit DAILY PO ; Start 10/10/16 at 09:00 Insulin Aspart NOVOLOG *MILD* ALGORITHM Q4 SC ; Start 10/09/16 at 17:30 Dextrose/Sodium Chloride (D5-1/2ns) 1,000 ml @ 40 mls/hr Q24H IV Last administered on 10/09/16 16:58; Admin Dose 40 MLS/HR; Start 10/09/16 at 17:00 Miscellaneous Information 1 ea NOTE XX ; Start 10/09/16 at 17:00 Glucose (Glutose) 15 gm Q15M PRN PO DECREASED GLUCOSE; Start 10/09/16 at 17:00 Glucose (Glutose) 22.5 gm Q15M PRN PO DECREASED GLUCOSE; Start 10/09/16 at 17: 00 Dextrose (D50w Syringe) 25 ml Q15M PRN IV DECREASED GLUCOSE Last administered on 10/09/16 16:59; Admin Dose 25 ML; Start 10/09/16 at 17:00 Dextrose (D50w Syringe) 50 ml Q15M PRN IV DECREASED GLUCOSE; Start 10/09/16 at 17:00 Glucagon (Glucagen) 1 mg Q15M PRN IM DECREASED GLUCOSE; Start 10/09/16 at 17:00 Glucose (Glutose) 15 gm Q15M PRN BUCCAL DECREASED GLUCOSE; Start 10/09/16 at 17 :00 Hydralazine HCl (Apresoline) 10 mg Q4H PRN IV ELEVATED BLOOD PRESSURE Last administered on 10/09/16 21:16; Admin Dose 10 MG; Start 10/09/16 at 21:30 Hydralazine HCl (Apresoline) 10 mg Q6H PRN IV ELEVATED SYSTOLIC BP; Start 10/09 at 23:00 Insulin Glargine (Lantus) 20 unit QHS SC ; Start 10/10/16 at 21:00 SHARIFA BELLA MD Oct 10, 2016 14:13
--- NOTE | 2016-10-10 15:57 | RADRPT ---
PROCEDURE: Intraoperative imaging of the left upper extremity with fluoroscopy. CLINICAL INDICATION: Left arm pain. Nonfunctioning left upper extremity dialysis fistula. Intrao perative. TECHNIQUE: 6 images of the left upper extremity were obtained in the operating room with an image intensifier. No radiologist was in attendance. 35 seconds of fluoroscopy time was used. COMPARISON: No prior study is available for comparison. FINDINGS: Images demonstrate contrast in the dialysis fistula in the left upper extremity. There is a large fi lling defect in the lower portion of the outflow vein which may be thrombus. IMPRESSION: 1. Intraoperative imaging of the left upper extremity. RPTAT: QQ .Soto Lucero MD, MD Date Time Electronically viewed and signed by .Soto Lucero MD, on 10/10/2016 15:56 .R/
--- NOTE | 2016-10-10 20:28 | OPR ---
Date/Time of Note Date/Time of Note DATE: 10/10/16 TIME: 20:27 Operative Report Preoperative Diagnosis Clotted LUE AVF Postoperative Diagnosis same Operation Performed Thrombectomy LUE AVF Surgeon: LISBETH HUDSON MD Anesthesia: general Estimated Blood Loss: 50 - 100 ml's Complications: None Pt Condition Post Procedure: stable Disposition: PACU LISBETH HUDSON MD Oct 10, 2016 20:28
--- NOTE | 2016-10-10 20:57 | CONS ---
DATE OF ADMISSION: 10/09/2016 DATE OF CONSULTATION: Dear Dr. Bella: Thank you for asking me to participate in the care of this 51-year-old para 2, 2 Latin female who is a limited historian, speaks Slovak only. The patient has been known to me for almost 5 years with a diagnosis of diabetes , end-stage kidney disease for which she has been on hemodialysis. The patient has been reasonably stable, in fact has been hardly hospitalized during this course and presented to the emergency room with clotted AV fistula, left arm. The patient at the time of this dictation has undergone AV fistula declotting and is getting dialysis. The patient has not had any problem like this prior to this and she has had reasonable course of dialysis. She is denying any pains in the arm, although she has had swelling of the arm with aneurysmal formation of the fistula. The rest of the past history has been negative except for 2 pregnancies. PERSONAL HISTORY: The patient lives with the family. FAMILY HISTORY: Noncontributory. The patient has had 9 siblings. The other 8 siblings were in good shape. The mother, father is still alive. Mother of heart problem. REVIEW OF SYSTEMS: The rest of the systems are negative for any head, eye, ear , nose, throat problem. No chest pain, shortness of breath, abdominal pain, neck pain, flank pain, dysuria, frequency, urgency, hesitancy. PHYSICAL EXAMINATION: GENERAL: The patient to be mildly obese, pleasant female who is in no acute distress. VITAL SIGNS: Blood pressure has been normal 130/70, heart rate 70, temperature 97, respiration is not labored at 18. HEAD, EYE, EAR, NOSE, THROAT: Unremarkable. Conjunctivae is pale. Sclerae are anicteric. Nose: Normal mucosa. Throat: Tongue is pale. No pharyngeal congestion. NECK: Supple. No JVD, LN, Throid enlargement is present. Neck movements normal. CHEST: Symmetrical. Breasts not examined LUNGS: Clear. HEART: Regular rhythm, S1, S2 unremarkable. ABDOMEN: Flat, soft, no masses. GENITALIA: Not examined. EXTREMITIES: Left arm AV fistula is clotted with marked letty formation of the clot. SKIN: Unremarkable. NEUROLOGIC: No neurological deficits noted. MEDICATIONS AT THIS TIME: Include: 1. Hydralazine. 2. IV fluids which was discontinued. 3. Insulin coverage. 4. Labetalol. 5. Demerol which has been discontinued. 6. Renvela. IMPRESSION: 1. History of diabetes. 2. End-stage kidney disease on hemodialysis. 3. Clotted AV fistula, left arm. PLAN: This patient has been reasonably stable until now. I have discussed the case with the vascular surgeon who has declotted the patient successfully. Hematocrit is stable at 31% and white count is normal. The patient has had a potassium is stable and a hemoglobin A1c is also 7. A KUB was done which showed atrophic right kidney. The patient may have had renovascular disease as suggested by the renal ultrasound findings. Presently the patient has been dialyzed and I would like to get a chest x-ray to evaluate the picture prior to discharging. If stable she can be discharged and return for dialysis. Dictated By: SHAKILA PATE/NTS Conf#: [id number] DID#: [id number] CC: SHAKILA SWANSON MD; SHARIFA BELLA MD;*EndCC* MTDD
--- NOTE | 2016-10-10 21:25 | OPR ---
DATE OF OPERATION: PREOPERATIVE DIAGNOSIS: Clotted left upper extremity arteriovenous fistula. POSTOPERATIVE DIAGNOSIS: Clotted left upper extremity arteriovenous fistula. OPERATION PERFORMED: 1. Thrombectomy and revision left upper extremity fistula. 2. 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 3. Angioplasty left axillary vein 8 x 40 mm balloon. 4. Superior venacavogram. 5. Interpretation and supervision of the superior venacavogram. 6. Catheter introduction into superior vena cava. 7. Fluoroscopy. SURGEON: Lisbeth Harmon MD ANESTHESIA: Local plus IV sedation. CONSENT: Risks, benefits, complications, alternative therapies explained to the patient and the [facility] lakisha, consent obtained. OPERATIVE TECHNIQUE: The patient was placed in supine position, prepped and draped in usual sterile fashion. I made a 2 cm incision over the fistula which was in the left arm. The fistula was ident ified. The Vesseloops were passed around it. It appeared to be aneurysmal. It was then opened in horizontal fashion. Thrombectomy of the arterial and the venous limb of the fistula was performed u sing a 4-[place] catheter. We could not advance the catheter through the arterial anastomosi s. A second incision was made at the arterial anastomosis. Again, the thrombectomy was done in a s imilar fashion. Thrombectomy was completed. Aneurysm was resected. 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 The patient was given 5000 units of IV heparin over an 0.035 guidewire. This was angioplastied up to 2 atmospheres of pressure. The final venogram revealed less than 50% stenosis in this area. The fistula was the n revised in an end-to-end fashion using 6-0 Prolene in continuous fashion. Both wounds were then i rrigated and closed in 2 layers of 3-0 Vicryl suture for subQ and 3-0 Vicryl suture for running subc uticular skin closure. The patient tolerated the procedure well. Dictated By: LISBETH HARMON MD FM/NTS Conf#: [id number] DID#: [id number] CC: LISBETH HARMON MD; SHAKILA SWANSON MD; SHARIFA BELLA MD;*End*
--- NOTE | 2016-10-10 21:57 | RADRPT ---
PROCEDURE: XR Chest. CLINICAL INDICATION: Shortness of breath. TECHNIQUE: Single frontal view. COMPARISON: 09/02/2016. FINDINGS: The lungs are clear. The heart is mildly enlarged. There is no pleural effusion. There is no pneumothorax. IMPRESSION: 1. Mild cardiomegaly. 2. Clear lungs. RPTAT: QQ .Soto Lucero MD, MD Date Time Electronically viewed and signed by .Soto Lucero MD, MD on 10/10/2016 21:56 .R/
[2016-10-10] MEDS: INSULIN GLARGINE [LANtus] 3 ML PEN SC SCH (22:11)
[2016-10-11] VITALS (10 sets, daily range): BP systolic 102–145; BP diastolic 51–72; PULSE 60–72; RESP 16–20
[2016-10-11] MEDS: GABAPENTIN 300 MG CAP PO SCH ×4 (00:13→21:22)
[2016-10-11] MEDS: INSULIN ASPART [NOVOLOG] 3 ML PEN SC SCH ×9 (00:29→21:25)
[2016-10-11] MEDS: LEVOTHYROXINE 150 MCG TAB PO SCH ×2 (04:49→08:32)
[2016-10-11] MEDS: HEPARIN 25000 UNITS/250 ML 250 ML IV SCH ×3 (04:49→13:00)
[2016-10-11] MEDS: HYDROCODONE/APAP (10/325) TAB PO PRN ×3 (04:50→18:17)
[2016-10-11 05:45] LABS: ADD SCAN DIFF NO
[2016-10-11 05:54] LABS: BASOPHILS % 0.2 % (0.0-2.0); EOSINOPHILS % 0.2 % (0.0-7.0); HEMATOCRIT 29.3 % (37.0-47.0); HEMOGLOBIN 9.7 g/dl (12.0-16.0); LYMPHOCYTES # 2.6 10^3/ul (0.8-2.9); LYMPHOCYTES % 44.7 % (15.0-51.0); MEAN CORPUSCULAR HEMOGLOBIN 33.6 pg (29.0-33.0); MEAN CORPUSCULAR HGB CONC 33.1 g/dl (32.0-37.0); MEAN CORPUSCULAR VOLUME 101.4 fl (82.0-101.0); MEAN PLATELET VOLUME 11.9 fl (7.4-10.4); MONOCYTE # 0.4 10^3/ul (0.3-0.9); MONOCYTES % 6.7 % (0.0-11.0); NEUTROPHIL # 2.8 10^3/ul (1.6-7.5); PLATELET COUNT 130 10^3/UL (140-415); RED BLOOD COUNT 2.89 10^6/ul (4.20-5.40); RED CELL DISTRIBUTION WIDTH 12.7 % (11.5-14.5); WHITE BLOOD COUNT 5.9 10^3/ul (4.8-10.8)
[2016-10-11 06:09] LABS: POTASSIUM 4.1 mmol/L (3.5-5.1)
[2016-10-11 06:12] LABS: CALCIUM 8.5 mg/dl (8.4-10.2); CREATININE 6.2 mg/dl (0.44-1.00)
[2016-10-11 06:19] LABS: ALBUMIN 3.5 g/dl (3.3-4.9)
[2016-10-11] MEDS: ASPIRIN 81 MG TAB PO SCH (08:32)
[2016-10-11] MEDS: CHOLECALCIFEROL 1,000 UNIT TAB PO SCH (08:32)
[2016-10-11] MEDS: SEVELAMER CARBONATE 0.8 GM PKT PO SCH ×3 (08:32→18:17)
[2016-10-11] MEDS: ATENOLOL 50 MG TAB PO SCH (08:33)
--- NOTE | 2016-10-11 10:11 | PN ---
Date/Time of Note Date/Time of Note DATE: 10/11/16 TIME: 10:09 Assessment/Plan VTE Prophylaxis VTE Prophylaxis Intervention: other Assessment/Plan Assessment/Plan 1. History of diabetes. 2. End-stage kidney disease on hemodialysis. 3. Clotted AV fistula, left arm. [id number] post declotting hd done yesterday need today as it is her day so she canresume tts Subjective 24 Hr Interval Summary Constitutional: no complaints Eyes: no complaints ENT: no complaints Respiratory: no complaints Cardiovascular: no complaints Exam/Review of Systems Vital Signs Vitals Vital Signs Date Time Temp Pulse Resp B/P Pulse Ox O2 Delivery O2 Flow Rate FiO2 10/11/16 08:00 98.0 68 20 145/63 97 10/11/16 00:15 Room Air Intake and Output 10/10/16 10/10/16 10/11/16 15:00 23:00 07:00 Intake Total 800 ml 620 ml 754 ml Output Total 200 ml 2400 ml Balance 600 ml -1780 ml 754 ml Exam Constitutional: alert Psych: no complaints Head: normocephalic Eyes: nl conjunctiva Neck: supple Respiratory: clear to auscultation Cardiovascular: regular rate and rhythm Gastrointestinal: soft Musculoskeletal: nl extremities to inspection Results Result Diagram: 10/11/16 0430 10/11/16 0430 Results 24 hrs Laboratory Tests Test 10/10/16 16:05 10/10/16 16:37 10/10/16 22:05 10/10/16 22:49 Activated Partial Thromboplast Time 102.6 *H 79.2 *H Bedside Glucose 124 266 H Test 10/11/16 00:19 10/11/16 04:30 10/11/16 04:51 10/11/16 07:47 Bedside Glucose 238 H 172 130 White Blood Count 5.9 Red Blood Count 2.89 L Hemoglobin 9.7 L Hematocrit 29.3 L Mean Corpuscular Volume 101.4 H Mean Corpuscular Hemoglobin 33.6 H Mean Corpuscular Hemoglobin Concent 33.1 Red Cell Distribution Width 12.7 Platelet Count 130 L Mean Platelet Volume 11.9 H Neutrophils % 48.0 Lymphocytes % 44.7 Monocytes % 6.7 Eosinophils % 0.2 Basophils % 0.2 Nucleated Red Blood Cells % 0.0 Neutrophils # 2.8 Lymphocytes # 2.6 Monocytes # 0.4 Eosinophils # 0.0 Basophils # 0.0 Nucleated Red Blood Cells # 0.0 Activated Partial Thromboplast Time 33.7 Sodium Level 136 Potassium Level 4.1 Chloride Level 95 L Carbon Dioxide Level 26 Anion Gap 19 H Blood Urea Nitrogen 54 H Creatinine 6.20 H Glucose Level 186 Calcium Level 8.5 Total Bilirubin 0.0 L Direct Bilirubin 0.00 Indirect Bilirubin 0.0 Aspartate Amino Transf (AST/SGOT) 49 H Alanine Aminotransferase (ALT/SGPT) 61 Alkaline Phosphatase 83 Total Protein 7.0 Albumin 3.5 Lipase 307 H Test 10/11/16 09:33 Bedside Glucose 138 Medications Medications Current Medications Ondansetron HCl (Zofran Tab) 4 mg Q6H PRN PO NAUSEA AND/OR VOMITING Last administered on 10/11/16 09:46; Admin Dose 4 MG; Start 10/09/16 at 11:00 Acetaminophen (Tylenol Tab) 650 mg Q6H PRN PO PAIN LEVEL 1-3 OR FEVER; Start at 11:00 Acetaminophen (Tylenol Supp) 650 mg Q6H PRN [place] PAIN LEVEL 1-3 OR FEVER; Start 10/09/16 at 11:00 Acetaminophen/ Hydrocodone Bitart ([place] (5/325)) 1 tab Q6H PRN PO MODERATE PAIN LEVEL 4-6 Last administered on 10/10/16 22:49; Admin Dose 1 TAB; Start at 11:00 Docusate Sodium (Colace) 100 mg Q12H PRN PO CONSTIPATION; Start 10/09/16 at 11: 00 Aspirin (Aspirin) 81 mg DAILY PO Last administered on 10/11/16 08:32; Admin Dose 81 MG; Start 10/10/16 at 09:00 Atenolol (Tenormin) 50 mg DAILY PO Last administered on 10/11/16 08:33; Admin Dose 50 MG; Start 10/09/16 at 11:00 Cholecalciferol (Vitamin D) 1,000 unit DAILY PO Last administered on 10/11/16 08:32; Admin Dose 1,000 UNIT; Start 10/10/16 at 09:00 Insulin Aspart (Novolog Insulin Pen) NOVOLOG *MILD* ALGORITHM Q4 SC Last administered on 10/11/16 00:29; Admin Dose 2 UNIT; Start 4/13/17 at 17:30 Miscellaneous Information 1 ea NOTE XX ; Start 10/09/16 at 17:00 Glucose (Glutose) 15 gm Q15M PRN PO DECREASED GLUCOSE; Start 10/09/16 at 17:00 Glucose (Glutose) 22.5 gm Q15M PRN PO DECREASED GLUCOSE; Start 10/09/16 at 17: 00 Dextrose (D50w Syringe) 25 ml Q15M PRN IV DECREASED GLUCOSE Last administered on 10/09/16 16:59; Admin Dose 25 ML; Start 10/09/16 at 17:00 Dextrose (D50w Syringe) 50 ml Q15M PRN IV DECREASED GLUCOSE; Start 10/09/16 at 17:00 Glucagon (Glucagen) 1 mg Q15M PRN IM DECREASED GLUCOSE; Start 10/09/16 at 17:00 Glucose (Glutose) 15 gm Q15M PRN BUCCAL DECREASED GLUCOSE; Start 10/09/16 at 17 :00 Hydralazine HCl (Apresoline) 10 mg Q4H PRN IV ELEVATED BLOOD PRESSURE Last administered on 10/09/16 21:16; Admin Dose 10 MG; Start 10/09/16 at 21:30 Hydralazine HCl (Apresoline) 10 mg Q6H PRN IV ELEVATED SYSTOLIC BP; Start 10/09 at 23:00 Insulin Glargine (Lantus) 20 unit QHS SC Last administered on 10/10/16 22:11; Admin Dose 20 UNIT; Start 10/10/16 at 21:00 Acetaminophen/ Hydrocodone Bitart ([place] (10/325)) 1 tab Q6H PRN PO PAIN Last administered on 10/11/16 09:46; Admin Dose 1 TAB; Start 10/11/16 at 00:00 Gabapentin (Neurontin) 600 mg TID PO Last administered on 10/11/16 08:32; Admin Dose 600 MG; Start 10/11/16 at 00:00 JESSIKA PADILLA MD Oct 11, 2016 10:11
--- NOTE | 2016-10-11 15:34 | PN ---
Date/Time of Note Date/Time of Note DATE: 10/11/16 TIME: 15:31 Assessment/Plan VTE Prophylaxis VTE Prophylaxis Intervention: heparin Lines/Catheters IV Catheter Type (from Nrs): Peripheral IV Assessment/Plan Chief Complaint/Hosp Course S-no pain fever dyspnea. Cough w/o expectoration. Feels weak. O- vss PE No pallor/JVD Regular Clear Benign No edema. lt ue-positive warmth/pulses A/P 1. Lt AVF malfunction/thrombus. Stable, sp thrombectomy. DC heparin drip ok w vascular. 2. ESRD; home tomorr/Thursday if ok w consultants. 3. Hypertension/diabetes/metabolic syndrome 4. Abn LFT's probable Yi. Hepatitis panel negative 5. Anemia likely chronic disease 6. Hypothyroidism Problems: Exam/Review of Systems Vital Signs Vitals Vital Signs Date Time Temp Pulse Resp B/P Pulse Ox O2 Delivery O2 Flow Rate FiO2 10/11/16 08:00 98.0 68 20 145/63 97 10/11/16 00:15 Room Air Intake and Output 10/10/16 10/10/16 10/11/16 15:00 23:00 07:00 Intake Total 800 ml 620 ml 754 ml Output Total 200 ml 2400 ml Balance 600 ml -1780 ml 754 ml Results Result Diagram: 10/11/16 0430 10/11/16 0430 Results 24 hrs Laboratory Tests Test 10/10/16 16:05 10/10/16 16:37 10/10/16 22:05 10/10/16 22:49 Activated Partial Thromboplast Time 102.6 *H 79.2 *H Bedside Glucose 124 266 H Test 10/11/16 00:19 10/11/16 04:30 10/11/16 04:51 10/11/16 07:47 Bedside Glucose 238 H 172 130 White Blood Count 5.9 Red Blood Count 2.89 L Hemoglobin 9.7 L Hematocrit 29.3 L Mean Corpuscular Volume 101.4 H Mean Corpuscular Hemoglobin 33.6 H Mean Corpuscular Hemoglobin Concent 33.1 Red Cell Distribution Width 12.7 Platelet Count 130 L Mean Platelet Volume 11.9 H Neutrophils % 48.0 Lymphocytes % 44.7 Monocytes % 6.7 Eosinophils % 0.2 Basophils % 0.2 Nucleated Red Blood Cells % 0.0 Neutrophils # 2.8 Lymphocytes # 2.6 Monocytes # 0.4 Eosinophils # 0.0 Basophils # 0.0 Nucleated Red Blood Cells # 0.0 Activated Partial Thromboplast Time 33.7 Sodium Level 136 Potassium Level 4.1 Chloride Level 95 L Carbon Dioxide Level 26 Anion Gap 19 H Blood Urea Nitrogen 54 H Creatinine 6.20 H Glucose Level 186 Calcium Level 8.5 Total Bilirubin 0.0 L Direct Bilirubin 0.00 Indirect Bilirubin 0.0 Aspartate Amino Transf (AST/SGOT) 49 H Alanine Aminotransferase (ALT/SGPT) 61 Alkaline Phosphatase 83 Total Protein 7.0 Albumin 3.5 Lipase 307 H Test 10/11/16 09:33 10/11/16 11:00 10/11/16 11:45 Bedside Glucose 138 174 Activated Partial Thromboplast Time 50.8 H Medications Medications Current Medications Ondansetron HCl (Zofran Tab) 4 mg Q6H PRN PO NAUSEA AND/OR VOMITING Last administered on 10/11/16 09:46; Admin Dose 4 MG; Start 10/09/16 at 11:00 Acetaminophen (Tylenol Tab) 650 mg Q6H PRN PO PAIN LEVEL 1-3 OR FEVER; Start at 11:00 Acetaminophen (Tylenol Supp) 650 mg Q6H PRN [place] PAIN LEVEL 1-3 OR FEVER; Start 10/09/16 at 11:00 Acetaminophen/ Hydrocodone Bitart ([place] (5/325)) 1 tab Q6H PRN PO MODERATE PAIN LEVEL 4-6 Last administered on 10/10/16 22:49; Admin Dose 1 TAB; Start at 11:00 Docusate Sodium (Colace) 100 mg Q12H PRN PO CONSTIPATION; Start 10/09/16 at 11: 00 Aspirin (Aspirin) 81 mg DAILY PO Last administered on 10/11/16 08:32; Admin Dose 81 MG; Start 10/10/16 at 09:00 Atenolol (Tenormin) 50 mg DAILY PO Last administered on 10/11/16 08:33; Admin Dose 50 MG; Start 10/09/16 at 11:00 Cholecalciferol (Vitamin D) 1,000 unit DAILY PO Last administered on 10/11/16 08:32; Admin Dose 1,000 UNIT; Start 10/10/16 at 09:00 Insulin Aspart (Novolog Insulin Pen) NOVOLOG *MILD* ALGORITHM Q4 SC Last administered on 10/11/16 12:14; Admin Dose 1 UNIT; Start 10/09/16 at 17:30 Miscellaneous Information 1 ea NOTE XX ; Start 10/09/16 at 17:00 Glucose (Glutose) 15 gm Q15M PRN PO DECREASED GLUCOSE; Start 10/09/16 at 17:00 Glucose (Glutose) 22.5 gm Q15M PRN PO DECREASED GLUCOSE; Start 10/09/16 at 17: 00 Dextrose (D50w Syringe) 25 ml Q15M PRN IV DECREASED GLUCOSE Last administered on 10/09/16 16:59; Admin Dose 25 ML; Start 10/09/16 at 17:00 Dextrose (D50w Syringe) 50 ml Q15M PRN IV DECREASED GLUCOSE; Start 10/09/16 at 17:00 Glucagon (Glucagen) 1 mg Q15M PRN IM DECREASED GLUCOSE; Start 10/09/16 at 17:00 Glucose (Glutose) 15 gm Q15M PRN BUCCAL DECREASED GLUCOSE; Start 10/09/16 at 17 :00 Hydralazine HCl (Apresoline) 10 mg Q4H PRN IV ELEVATED BLOOD PRESSURE Last administered on 10/09/16 21:16; Admin Dose 10 MG; Start 10/09/16 at 21:30 Hydralazine HCl (Apresoline) 10 mg Q6H PRN IV ELEVATED SYSTOLIC BP; Start 10/09 at 23:00 Insulin Glargine (Lantus) 20 unit QHS SC Last administered on 10/10/16 22:11; Admin Dose 20 UNIT; Start 10/10/16 at 21:00 Acetaminophen/ Hydrocodone Bitart ([place] (10/325)) 1 tab Q6H PRN PO PAIN Last administered on 10/11/16 09:46; Admin Dose 1 TAB; Start 10/11/16 at 00:00 Gabapentin (Neurontin) 600 mg TID PO Last administered on 10/11/16 13:14; Admin Dose 600 MG; Start 10/11/16 at 00:00 DEENA URBINA MD Oct 11, 2016 15:34
[2016-10-11] MEDS: INSULIN GLARGINE [LANtus] 3 ML PEN SC SCH (21:24)
[2016-10-12] MEDS ORDERED: ONDANSETRON 4 MG INJ IV PRN
[2016-10-12] MEDS ORDERED: CALCIUM CARBONATE 500 MG CHEW TAB PO PRN ×2 (00:30)
[2016-10-12] MEDS: INSULIN ASPART [NOVOLOG] 3 ML PEN SC SCH ×6 (01:00→11:48)
[2016-10-12 08:00] VITALS: BP 118/62; RESP 20
[2016-10-12] MEDS: ASPIRIN 81 MG TAB PO SCH (08:41)
[2016-10-12] MEDS: CHOLECALCIFEROL 1,000 UNIT TAB PO SCH (08:41)
[2016-10-12] MEDS: ATENOLOL 50 MG TAB PO SCH (08:41)
[2016-10-12] MEDS: GABAPENTIN 300 MG CAP PO SCH ×2 (08:42→12:56)
[2016-10-12] MEDS: SEVELAMER CARBONATE 0.8 GM PKT PO SCH ×2 (08:42→12:56)
[2016-10-12] MEDS: LEVOTHYROXINE 150 MCG TAB PO SCH (08:44)
[2016-10-12] MEDS ORDERED: FAMOTIDINE 20 MG TAB PO SCH ×2 (09:00)
--- NOTE | 2016-10-12 10:30 | PN ---
Date/Time of Note Date/Time of Note DATE: 10/12/16 TIME: 10:28 Assessment/Plan VTE Prophylaxis VTE Prophylaxis Intervention: other Assessment/Plan Assessment/Plan [id number] hd yesterday done ok to dc Subjective 24 Hr Interval Summary Constitutional: no complaints Eyes: no complaints Respiratory: no complaints Cardiovascular: no complaints Exam/Review of Systems Vital Signs Vitals Vital Signs Date Time Temp Pulse Resp B/P Pulse Ox O2 Delivery O2 Flow Rate FiO2 10/12/16 08:00 98.9 63 20 118/62 95 10/11/16 20:30 Room Air Intake and Output 10/11/16 10/11/16 10/12/16 15:00 23:00 07:00 Intake Total 120 ml 1952 ml 250 ml Output Total 5000 ml Balance 120 ml -3048 ml 250 ml Exam Constitutional: alert, oriented Head: normocephalic Eyes: nl conjunctiva Neck: supple Respiratory: clear to auscultation Cardiovascular: regular rate and rhythm Gastrointestinal: soft Extremities: normal pulses Results Result Diagram: 10/11/16 0430 10/11/16 0430 Results 24 hrs Laboratory Tests Test 10/11/16 11:00 10/11/16 11:45 10/11/16 17:05 10/11/16 21:17 Activated Partial Thromboplast Time 50.8 H Bedside Glucose 174 173 234 H Test 10/12/16 01:20 10/12/16 04:54 10/12/16 07:41 Bedside Glucose 147 155 130 Medications Medications Current Medications Ondansetron HCl (Zofran Tab) 4 mg Q6H PRN PO NAUSEA AND/OR VOMITING Last administered on 10/11/16 09:46; Admin Dose 4 MG; Start 10/09/16 at 11:00 Acetaminophen (Tylenol Tab) 650 mg Q6H PRN PO PAIN LEVEL 1-3 OR FEVER; Start at 11:00 Acetaminophen (Tylenol Supp) 650 mg Q6H PRN IA PAIN LEVEL 1-3 OR FEVER; Start 10/09/16 at 11:00 Acetaminophen/ Hydrocodone Bitart ([place] (5/325)) 1 tab Q6H PRN PO MODERATE PAIN LEVEL 4-6 Last administered on 10/10/16 22:49; Admin Dose 1 TAB; Start at 11:00 Docusate Sodium (Colace) 100 mg Q12H PRN PO CONSTIPATION; Start 10/09/16 at 11: 00 Aspirin (Aspirin) 81 mg DAILY PO Last administered on 10/12/16 08:41; Admin Dose 81 MG; Start 10/10/16 at 09:00 Atenolol (Tenormin) 50 mg DAILY PO Last administered on 10/12/16 08:41; Admin Dose 50 MG; Start 10/09/16 at 11:00 Cholecalciferol (Vitamin D) 1,000 unit DAILY PO Last administered on 10/12/16 08:41; Admin Dose 1,000 UNIT; Start 10/10/16 at 09:00 Insulin Aspart (Novolog Insulin Pen) NOVOLOG *MILD* ALGORITHM Q4 SC Last administered on 10/11/16 21:25; Admin Dose 2 UNIT; Start 10/09/16 at 17:30 Miscellaneous Information 1 ea NOTE XX ; Start 10/09/16 at 17:00 Glucose (Glutose) 15 gm Q15M PRN PO DECREASED GLUCOSE; Start 10/09/16 at 17:00 Glucose (Glutose) 22.5 gm Q15M PRN PO DECREASED GLUCOSE; Start 10/09/16 at 17: 00 Dextrose (D50w Syringe) 25 ml Q15M PRN IV DECREASED GLUCOSE Last administered on 10/09/16 16:59; Admin Dose 25 ML; Start 10/09/16 at 17:00 Dextrose (D50w Syringe) 50 ml Q15M PRN IV DECREASED GLUCOSE; Start 10/09/16 at 17:00 Glucagon (Glucagen) 1 mg Q15M PRN IM DECREASED GLUCOSE; Start 10/09/16 at 17:00 Glucose (Glutose) 15 gm Q15M PRN BUCCAL DECREASED GLUCOSE; Start 10/09/16 at 17 :00 Hydralazine HCl (Apresoline) 10 mg Q4H PRN IV ELEVATED BLOOD PRESSURE Last administered on 10/09/16 21:16; Admin Dose 10 MG; Start 10/09/16 at 21:30 Hydralazine HCl (Apresoline) 10 mg Q6H PRN IV ELEVATED SYSTOLIC BP; Start 10/09 at 23:00 Insulin Glargine (Lantus) 20 unit QHS SC Last administered on 10/11/16 21:24; Admin Dose 20 UNIT; Start 10/10/16 at 21:00 Acetaminophen/ Hydrocodone Bitart ([place] (10/325)) 1 tab Q6H PRN PO PAIN Last administered on 10/11/16 18:17; Admin Dose 1 TAB; Start 10/11/16 at 00:00 Gabapentin (Neurontin) 600 mg TID PO Last administered on 10/12/16 08:42; Admin Dose 600 MG; Start 10/11/16 at 00:00 Ondansetron HCl (Zofran Inj) 4 mg Q6H PRN IV NAUSEA AND/OR VOMITING Last administered on 10/12/16 00:25; Admin Dose 4 MG; Start 10/12/16 at 00:00 Calcium Carbonate (Tums) 1,000 mg Q3H PRN PO HEARTBURN; Start 10/12/16 at 00:00 Calcium Carbonate (Tums) 500 mg Q3H PRN PO HEARTBURN; Start 10/12/16 at 00:30 Famotidine (Pepcid) 20 mg DAILY PO Last administered on 10/12/16 08:41; Admin Dose 20 MG; Start 10/12/16 at 09:00 JESSIKA PADILLA MD Oct 12, 2016 10:29
--- NOTE | 2016-10-12 12:22 | PDOCDIS ---
Discharge Instructions DIAGNOSIS Discharge Diagnosis: thrombosis avf CONDITION Patient Condition: Good HOME CARE INSTRUCTIONS: Special Diet: 1800 ada ACTIVITY: Activity Restrictions: Slowly Increase Activity FOLLOW UP/APPOINTMENTS Appointments Appt nephrology -1-2wks Dialysis - to continue as before admit PCP 1wk DEENA URBINA MD Oct 12, 2016 12:22
[2016-10-12] MEDS ORDERED: Hydrocodone/Apap (10/325) PO (12:25)
[2016-10-12] MEDS ORDERED: ACET325T40 PO (12:25)
--- NOTE | 2016-10-12 19:00 | DS ---
DATE OF ADMISSION: 10/09/2016 DATE OF DISCHARGE: 10/12/2016 DATE OF : 10/10/1949 PRIMARY CARE PHYSICIAN: Unknown. SOAKER MEAT: Dr. Harmon, Dr. Shakila Saldivar. DIAGNOSIS ON ADMISSION: Left AF graft malfunction. DIAGNOSES ON DISCHARGE: 1. Left arteriovenous graft malfunction thrombus. 2. End-stage renal disease. 3. Diabetes. 4. Hypertension, metabolic syndrome. 5. Probable Nonalcoholic fatty liver disease. 6. Anemia, likely of chronic disease. 7. Hypothyroidism. HOSPITAL COURSE: A 51-year-old female on chronic dialysis therapy for end-stage renal disease, admi tted after mechanical issues with dialysis. Noted in the ER to have a thrombus, seen urgently by al scular surgery. Underwent thrombectomy and revision under the care of Dr. Harmon. Please see ope rative report for complete details. Postoperative hospital course was uncomplicated. The patient t olerating diet, pain is controlled and she is stable and fit for discharge. Nausea, resolved. Pain is minimal. She has adequate sensation and return of her left arm function to her baseline. Does say this happened before in the past. 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 Stable and fit for discharge. DISCHARGE PLAN: 1. Home. Follow up with primary in 1 week. 2. Dialysis to continue. 3. Dr. Saldivar in [address] Harmon as needed. IMAGING STUDIES: Ultrasound abdomen shows atrophic right kidney, otherwise normal. Chest x-ray: N o acute process, mild cardiomegaly. Humeral x-ray: No acute process. LABORATORY DATA: White cell count of 5.9, hemoglobin and hematocrit of 9 and 29, MCV 101, platelets of 130, a little low. Sodium 136, potassium 4, chloride 95, bicarbonate 26, BUN of 54, creatinine 6.2, glucose of 200. LFTs okay. Lipase of 300. A1c of 7. DISCHARGE MEDICATIONS: CONTINUED MEDICATIONS: 1. Aspirin 81 daily. 2. Atenolol 50. 3. Vitamin D 1000 units daily. 4. NovoLog 12 units with meals. 5. Lantus 35 nightly. 6. Synthroid 150 mcg daily. 7. Renagel 800 mg t.i.d. ALTERED MEDICATIONS: None. NEW MEDICATIONS: 1. Tylenol as needed. 2. [place] as needed #10 one every 6 as needed. Dictated By: DEENA GRANDE/RASHAAD Conf#: [id number] DID#: [id number] CC: LISBETH HARMON MD; SHAKILA SALDIVAR MD;*End*
== END 2016-10-12 14:13 | disposition home or self-care (01) ==
LOC: E/R 09:10 → PP2 11:36 → INTOOBSV 11:36
PROVIDERS: ADMIT Family Medicine; ATTEND Family Medicine
DX: T82.868A Thrombosis due to vascular prosthetic devices, implants and grafts, initial encounter (principal); T82.898A Other specified complication of vascular prosthetic devices, implants and grafts, initial encounter; I87.1 Compression of vein; E11.22 Type 2 diabetes mellitus with diabetic chronic kidney disease; I12.0 Hypertensive chronic kidney disease with stage 5 chronic kidney disease or end stage renal disease; N18.6 End stage renal disease; Z99.2 Dependence on renal dialysis; Z79.4 Long term (current) use of insulin; E66.01 Morbid (severe) obesity due to excess calories; Z68.34 Body mass index [BMI] 34.0-34.9, adult; E03.9 Hypothyroidism, unspecified; D64.9 Anemia, unspecified; Z79.82 Long term (current) use of aspirin; R74.0 Nonspecific elevation of levels of transaminase and lactic acid dehydrogenase [LDH]; Y83.2 Surgical operation with anastomosis, bypass or graft as the cause of abnormal reaction of the patient, or of later complication, without mention of misadventure at the time of the procedure
CPT/HCPCS: 36833; 37248; 37607; 71010; 73060; 76705; 80048; 80053; 80076; 82962; 83036; 83690; 83735; 85025; 85610; 85730; 88305; 90935; 93005; 99285; G0378; J0330; J0360; J0690; J1644; J1815; J2405; J2765; J3010; J7042; Q9967

== ENCOUNTER 2016-11-11 11:10 | Emergency (ER) | payer SELFPAY ==
[~2016-11-11] VITALS: Ht 157.5 cm; Wt 91.0 kg
[~2016-11-11 11:10] MED LIST changes: +ACET325T40 PO; -ACET500C5 PO; +ASPI81TA3 PO; -AZIT250T94 PO; -CEPH-443 PO; +CHOL100062 PO; -D-ME473S18 PO; +Hydrocodone/Apap (10/325) PO; -INSU100C5 SQ; +LANT3I SC; +LEVO150T67 PO; -METH-493 PO; +NOVO3I SC; -NOVOLOG; -OMEP40CA6 PO; -OSLT75C PO
[2016-11-11 11:25] VITALS: Ht 157.5 cm; Wt 91.0 kg
[2016-11-11] MEDS ORDERED: LABETALOL HCL 20MG INJ IV ONE (15:30)
--- NOTE | 2016-11-11 15:32 | ERD ---
ER Documentation Chief Complaint Date/Time DATE: 11/11/16 TIME: 15:29 Chief Complaint unable to do dialysis today due to dialysis cath clogged HPI This 51-year-old female presented today from her primary care's office because of a clogged dialysis catheter. She denies have any symptoms currently. She is scheduled for dialysis today was unable to have it. She is accompanied by her daughter. She denies any symptoms currently. She has no shortness of breath, no lightheadedness, no headache, no dizziness or chest pain.. ROS All systems reviewed and are negative except as per history of present illness. Medications Home Meds Active Scripts [Hydrocodone/Apap ()] 1 TAB TAB No Conflict Check, 1 TAB PO Q6H Y for PAIN for 1 Day, #20 Prov:DEENA URBINA MD 10/12/16 Acetaminophen (MAPAP) 325 Mg Tablet, 650 MG PO Q6H Y for PAIN LEVEL 1-3 OR FEVER for 1 Day, #1 TAB Prov:DEENA URBINA MD 10/12/16 Reported Medications Cholecalciferol* (Vitamin D3*) 1,000 Unit Tablet, 1000 UNIT PO DAILY, TAB 10/09/16 Levothyroxine Sodium* (Levothyroxine Sodium*) 150 Mcg Tablet, 150 MCG PO BEFORE BREAKFAST, #30 TAB 10/09/16 Aspirin* (Aspirin* Chew) 81 Mg Tab.chew, 81 MG PO DAILY, TAB.CHEW 10/09/16 Insulin Aspart* (Novolog Insulin Pen*) 100 Unit/Ml Soln, 12 UNIT SC WITH MEALS, EA 10/09/16 Insulin Glargine* (Lantus*) 100 Unit/Ml Soln, 35 UNIT SC QHS, #1 VIAL 10/09/16 Sevelamer Carbonate* (Renvela*) 800 Mg Tablet, 800 MG PO TID 01/16/13 Atenolol* (Atenolol*) 50 Mg Tablet, 50 MG PO DAILY 12/17/11 Allergies Allergies: Coded Allergies: No Known Allergies (Verified Allergy, Unknown, 08/18/14) PMhx/Soc History of Surgery: Yes (port A catheter placement,2011 and AV fistula 2011) Anesthesia Reaction: No Hx Neurological Disorder: No Hx Respiratory Disorders: No Hx Cardiac Disorders: Yes (HTN) Hx Psychiatric Problems: No Hx Alcohol Use: No Hx Substance Use: No Hx Tobacco Use: No Physical Exam Vitals Vital Signs Date Time Temp Pulse Resp B/P Pulse Ox O2 Delivery O2 Flow Rate FiO2 11/11/16 11:25 98.2 66 18 225/100 98 Physical Exam Const: [] No distress Head: Atraumatic Eyes: Normal Conjunctiva ENT: Normal External Ears, Nose and Mouth. Neck: Obese, no JVD seen Cardio: Regular rate and rhythm, no murmurs Skin: No petechiae or rashes Ext: No cyanosis, or edema Neur: Awake and alert and oriented 3, normal gait Psych: Normal Mood and Affect Results 24 hrs Current Medications Medications (Trade) Dose Ordered Sig/Yasmeen Route PRN Reason Start Time Stop Time Status Last Admin Dose Admin Labetalol HCl (Labetalol) 20 mg ONCE ONCE IV 11/11/16 15:30 11/11/16 15:31 Procedures/MDM 51-year-old female sent for complication of dialysis access with need for dialysis today according to the primary care doctor. Upon entering the patient' s room shortly after she arrived she had just gotten off the phone with both of her doctors. She is supposed to go straight to see her vascular surgeon currently who is awaiting her arrival. Informed her of her emergently high blood pressure. She stated that she feels fine and is comfortable leaving without any treatment. Workup was not able to be performed. Patient declined treatment and IV. I told her she should goes directly to an emergency room if she has any symptoms whatsoever. Departure Diagnosis: Primary Impression: Uncontrolled hypertension Additional Impression: Problem with dialysis access Condition: Serious Patient Instructions: Caring for Your Hemodialysis Access, Hypertension, Established, Out Of Control Additional Instructions: Abhay bearden VASCULAR Surgeon JESUS CEVALLOS DO November 11, 2016 15:32
== END 2016-11-11 18:30 | disposition home or self-care (01) ==
LOC: E/R 11:10
DX: I10 Essential (primary) hypertension (principal); Y82.8 Other medical devices associated with adverse incidents; Z79.82 Long term (current) use of aspirin; Z79.4 Long term (current) use of insulin

== ENCOUNTER 2017-07-30 11:47 | Inpatient (IN) | END 2017-08-03 18:40 | disposition home or self-care (01) | DRG 252 ==

== ENCOUNTER → 2017-08-20 | Outpatient (CLI) | END | disposition home or self-care (01) ==

== ENCOUNTER 2017-08-21 13:08 | Day surgery (SDC) | END 2017-08-21 18:38 | disposition home or self-care (01) ==